=== PATIENT | female | born 1935 | race Caucasian/White ===

== ENCOUNTER → 2017-01-20 | Outpatient (CLI) | payer MEDICARE, OTHER | LOC: KOH-I 11:30 | DX: R22.42 Localized swelling, mass and lump, left lower limb (principal); M79.662 Pain in left lower leg | CPT/HCPCS: 93971 ==

== ENCOUNTER 2021-05-13 13:35 | Emergency (ER) | payer MEDICARE, OTHER ==
[~2021-05-13 13:35] MED LIST: CEFUROXIME500 MG PO; MEDROL4 MG PO; NORCO 5-325 TA1 EACH PO
[2021-05-13 14:13] LABS: HEMOGLOBIN 12.6 gm/dl (12.3-15.3); RED BLOOD COUNT 4.09 M/UL (4.00-5.10); WHITE BLOOD COUNT 4.3 K/UL (4.5-11.0)
[2021-05-13 14:36] LABS: BUN/CREATININE RATIO 25 (0-10)
[2021-05-13] MEDS ORDERED: OMNICEF 300 MG300 MG PO (17:32)
== END 2021-05-13 17:55 | disposition home or self-care (01) ==
LOC: ER1 13:35
PROVIDERS: Family Medicine
DX: N39.0 Urinary tract infection, site not specified (principal); E11.9 Type 2 diabetes mellitus without complications; I10 Essential (primary) hypertension; Z20.822 Contact with and (suspected) exposure to COVID-19
CPT/HCPCS: 71046; 80053; 81001; 82550; 82553; 83605; 84484; 85025; 85610; 87040; 87070; 87205; 93005; 94640; 94664; 96374; 96375; 99284; J0696; J2930; U0002

== ENCOUNTER → 2021-10-23 | Outpatient (CLI) | payer MEDICARE, OTHER ==
[~2021-10-23] MED LIST changes: +OMNICEF 300 MG300 MG PO
== END ==
LOC: US 08:55
DX: R10.11 Right upper quadrant pain (principal); R06.00 Dyspnea, unspecified; G45.9 Transient cerebral ischemic attack, unspecified; K80.20 Calculus of gallbladder without cholecystitis without obstruction; K82.8 Other specified diseases of gallbladder; I08.8 Other rheumatic multiple valve diseases
CPT/HCPCS: 76705; 93880

== ENCOUNTER 2021-12-10 18:43 | Emergency (ER) | payer MEDICARE, OTHER ==
[2021-12-10 20:46] LABS: HEMOGLOBIN 13.5 gm/dl (12.3-15.3); RED BLOOD COUNT 4.23 M/UL (4.00-5.10); WHITE BLOOD COUNT 7.1 K/UL (4.5-11.0)
[2021-12-10 21:04] LABS: BUN/CREATININE RATIO 35 (0-10)
[2021-12-11] MEDS ORDERED: CYCLOBENZAPRINE10 MG PO (03:38)
== END 2021-12-11 03:52 | disposition home or self-care (01) ==
LOC: ER1 18:43
PROVIDERS: Emergency Medicine
DX: M54.6 Pain in thoracic spine (principal); R10.811 Right upper quadrant abdominal tenderness; R10.813 Right lower quadrant abdominal tenderness; R07.9 Chest pain, unspecified; R06.02 Shortness of breath; E11.9 Type 2 diabetes mellitus without complications; E78.5 Hyperlipidemia, unspecified; I10 Essential (primary) hypertension; Z85.828 Personal history of other malignant neoplasm of skin; Z88.5 Allergy status to narcotic agent; Z79.82 Long term (current) use of aspirin
CPT/HCPCS: 71045; 80053; 82550; 82553; 84484; 85025; 86850; 86900; 86901; 93005; 96374; 96375; 96376; 99285; J1170; J2360; Q9967

== ENCOUNTER 2021-12-29 10:58 | Emergency (ER) | payer MEDICARE, OTHER ==
[~2021-12-29 10:58] MED LIST changes: +CYCLOBENZAPRINE10 MG PO
[2021-12-29 11:47] LABS: HEMOGLOBIN 11.4 gm/dl (12.3-15.3); RED BLOOD COUNT 3.53 M/UL (4.00-5.10); WHITE BLOOD COUNT 5.6 K/UL (4.5-11.0)
[2021-12-29 12:06] LABS: BUN/CREATININE RATIO 35 (0-10)
== END 2021-12-29 13:08 | disposition home or self-care (01) ==
LOC: ER1 10:58
PROVIDERS: Emergency Medicine
DX: E86.0 Dehydration (principal); R03.1 Nonspecific low blood-pressure reading; I10 Essential (primary) hypertension; E11.9 Type 2 diabetes mellitus without complications; F03.90 Unspecified dementia, unspecified severity, without behavioral disturbance, psychotic disturbance, mood disturbance, and anxiety
CPT/HCPCS: 80053; 84484; 85025; 93005; 99285